=== PATIENT | female | born 1970 | race Caucasian/White ===

== ENCOUNTER → 2017-02-03 | Outpatient (CLI) | payer BC, OTHER ==
[~2017-02-03] MED LIST: ACHD5005 PO; ADDERAL; ADDERALL PO; ADDR10T PO; AMPH12.5 PO; CLON1TAB3 PO; CLON1TAB36; CYCL10TA9 PO; CYMBALTA PO; DEPO-ESTRADIOL; ESTR1TAB24 PO; LEVO125T66 PO; LUNESTA; PROP65CA PO; TOPI100T2 PO; TOPI50TA20; TOPI50TA20 PO; TRZ50T PO; VENL150T4 PO; VNL37.5T PO
--- NOTE | 2017-02-04 13:31 | Diagnostic Imaging Report ---
Bilateral screening mammogram 2D views with tomosynthesis The current study was also evaluated with a Computer Aided Detection (CAD) system. Indication: Screening. No current complaints stated on the questionnaire. COMPARISON: 09/18/11. FINDINGS: The breasts are composed of scattered fibroglandular densities. There is a 7 mm asymmetry along the inferior aspect of the left MLO view seen. With tomographic evaluation this is favored to be related to summation artifact of parenchyma. The right breast demonstrate no definite change. IMPRESSION: Focal compression views and ultrasound evaluation for inferior left breast asymmetry is recommended. BI-RADS 0. ACR BI-RADS Category 0: Incomplete. (Needs additional imaging evaluation). Result letter will be mailed to the patient. Note: At least 10% of breast cancer is not imaged by mammography. Dictated by: Dictated on workstation # [id number]
== END ==
LOC: RAD 07:17
PROVIDERS: ATTEND Family Medicine
DX: Z12.31 Encounter for screening mammogram for malignant neoplasm of breast (principal)
CPT/HCPCS: 77067

== ENCOUNTER → 2017-02-15 | Outpatient (CLI) | payer OTHER ==
--- NOTE | 2017-02-15 09:14 | Diagnostic Imaging Report ---
EXAMINATION: Left breast diagnostic mammogram with tomography. The current study was also evaluated with a Computer Aided Detection (CAD) system. INDICATION: Asymmetry along the inferior aspect of the left breast. FINDINGS: A focal compression view demonstrates persistence of the asymmetry with an equivocal appearance on the tomography view. IMPRESSION: Persistent asymmetry along the inferior aspect of the left breast. An ultrasound evaluation is pending. ACR BI-RADS Category 0: Incomplete. (Needs additional imaging evaluation). Result letter will be mailed to the patient. Note: At least 10% of breast cancer is not imaged by mammography. Dictated by: Dictated on workstation # [id number]
--- NOTE | 2017-02-15 13:21 | Diagnostic Imaging Report ---
EXAMINATION: Left breast ultrasound. INDICATION: Inferior left breast asymmetry. FINDINGS: The inferior aspect of the left breast was scanned with no underlying abnormality. IMPRESSION: Negative study. The asymmetry seen on mammography may relate to summation artifact of parenchyma. The patient mentioned skin dimpling in the lower aspect of the left breast. Correlate clinically and consider evaluation with a breast MRI. If not done, then re-evaluation with left breast mammogram followup in 6 months is recommended. ACR BI-RADS Category 0: Incomplete. (Needs additional imaging evaluation). Result letter will be mailed to the patient. Note: At least 10% of breast cancer is not imaged by mammography. Dictated by: Dictated on workstation # [id number]
== END ==
LOC: RAD 08:41
PROVIDERS: ATTEND Family Medicine
DX: N64.89 Other specified disorders of breast (principal)
CPT/HCPCS: 76642

== ENCOUNTER → 2017-02-18 | Outpatient (CLI) | payer OTHER ==
[~2017-02-18] MED LIST changes: +GADOBUTROL 10 MMOL/10 ML (GADAVIST) VIAL IV ONE
== END ==
LOC: RAD 08:29
PROVIDERS: ATTEND Family Medicine
DX: N64.89 Other specified disorders of breast (principal)
CPT/HCPCS: 77059

== ENCOUNTER → 2018-01-28 | Outpatient (CLI) | payer OTHER ==
[~2018-01-28] MED LIST changes: -GADOBUTROL 10 MMOL/10 ML (GADAVIST) VIAL IV ONE
--- NOTE | 2018-01-28 12:13 | Diagnostic Imaging Report ---
PROCEDURE: CT urinary tract, rule out kidney stone. TECHNIQUE: Multiple contiguous axial images were obtained through the abdomen and pelvis without the use of intravenous contrast. INDICATION: Increasing left flank pain. COMPARISON: Comparison is made with prior CT from 04/26/2009. FINDINGS: The lung bases are clear. No discrete liver mass is identified. The gallbladder is surgically absent. The pancreas and spleen are unremarkable. No adrenal mass is identified. There is a nonobstructive calculus in the upper pole of the right kidney, approximately 3 mm in size. No other renal calculi are detected. There is no hydronephrosis. No definite ureteral calculi or bladder calculi are identified. The aorta is nonaneurysmal. The bowel loops are normal in caliber. No obstruction is seen. There is no ascites. No definite inflammatory process is identified. Uterus appears to be surgically absent. IMPRESSION: 3 mm nonobstructing right renal calculus. The study is otherwise unremarkable. No acute feature is detected. Dictated by: Dictated on workstation # [id number]
== END ==
LOC: RAD 11:46
PROVIDERS: ATTEND Family Medicine
DX: N20.0 Calculus of kidney (principal)
CPT/HCPCS: 74176

== ENCOUNTER → 2018-04-20 | Outpatient (CLI) | payer OTHER ==
[~2018-04-20] MED LIST changes: +LIDOCAINE 1% INJ 20 ML 20 ML VIAL INJ ONE; +LIDOCAINE 1% INJ 20 ML 20 ML VIAL ONE
--- NOTE | 2018-04-20 09:49 | Diagnostic Imaging Report ---
Indication: Right breast nodule. Patient presents for ultrasound-guided biopsy. Correlation is made with outside ultrasound from 04/15/2018 and outside mammogram from 04/15/2018. Sonographic interrogation of the right breast at the 11 o'clock location was performed. The previously noted area of mixed echogenicity at the 11 o'clock location of the right breast appears significantly improved. There are some areas of hyperechogenicity. The cystic or central hypo-echoic regions are much smaller and barely visible on today's exam. No internal vascularity is present. No posterior acoustic shadowing is seen. No new abnormality is identified. Impression: BI-RADS 3 1. The previously noted suspicious mixed echogenicity mass at the 11 o'clock location on the right breast on outside study appears much different on today's study and improved. Features are no longer typical for a breast carcinoma. With that being said, short interval sonographic followup is recommended in approximately 2-4 weeks to confirm stability/resolution. Decision at that time based on appearance will be made on management. Dictated by: Dictated on workstation # [id number]
== END ==
LOC: RAD 07:28
PROVIDERS: ATTEND Nurse Practitioner Family
DX: N63.11 Unspecified lump in the right breast, upper outer quadrant (principal)

== ENCOUNTER → 2018-05-11 | Outpatient (CLI) | payer OTHER ==
[~2018-05-11] MED LIST changes: -LIDOCAINE 1% INJ 20 ML 20 ML VIAL INJ ONE; -LIDOCAINE 1% INJ 20 ML 20 ML VIAL ONE
--- NOTE | 2018-05-11 19:59 | Diagnostic Imaging Report ---
INDICATION: Right breast lesion. Patient presents for followup. COMPARISON: Correlation is made with a right breast ultrasound from 04/20/2018. EXAMINATION: Sonographic interrogation of the 11 o'clock location of the right breast was performed, 5 cm from the nipple. FINDINGS: Previously noted mixed echogenicity lesion at this location again shows continued significant improvement. This is much smaller on today's study, now measuring approximately 7 mm x 4 mm x 4 mm compared with 14 mm x 8 mm x 8 mm on prior. Tiny regions of central hyperechogenicity are again noted. No posterior acoustic shadowing or internal vascularity is seen. IMPRESSION: Continued improved appearance to the mixed echogenicity lesion at the 11 o'clock location of the right breast, 5 cm from the nipple. Findings remain reassuring for benign etiology. Continued short interval sonographic followup of this area is recommended with repeat study in approximately one month. ACR BI-RADS Category 3: Probably benign findings. Result letter will be mailed to the patient. Note: At least 10% of breast cancer is not imaged by mammography. Dictated by: Dictated on workstation # [id number]
== END ==
LOC: RAD 07:34
PROVIDERS: ATTEND Family Medicine
DX: N64.89 Other specified disorders of breast (principal); N63.10 Unspecified lump in the right breast, unspecified quadrant

== ENCOUNTER → 2019-04-17 | Outpatient (CLI) | payer OTHER ==
--- NOTE | 2019-04-17 11:05 | Diagnostic Imaging Report ---
PATIENT HISTORY: WRIST PAIN. Dog bite. TECHNIQUE: Three views of the left wrist. COMPARISON: None. FINDINGS: No acute fracture or dislocation is seen in the left wrist. Alignment appears normal. Joint spaces are preserved. No radiopaque foreign body is seen. IMPRESSION: No acute osseous abnormality or radiopaque foreign body is seen about the left wrist. Dictated by: Dictated on workstation # [id number]
--- NOTE | 2019-04-17 11:06 | Diagnostic Imaging Report ---
PATIENT HISTORY: WRIST PAIN. Dogbite. TECHNIQUE: Two views of the left forearm. COMPARISON: None. FINDINGS: No acute fracture or dislocation is seen in the left forearm. Alignment appears normal. Joint spaces are preserved. There is mild soft tissue swelling at the radial aspect of the distal left forearm. No radiopaque foreign body is seen. IMPRESSION: Soft tissue swelling at the distal left forearm, with no acute osseous abnormality or radiopaque foreign body seen. Dictated by: Dictated on workstation # [id number]
== END ==
LOC: RAD 10:28
PROVIDERS: ATTEND Nurse Practitioner Family
DX: S51.852A Open bite of left forearm, initial encounter (principal); W54.0XXA Bitten by dog, initial encounter
CPT/HCPCS: 73090; 73110

== ENCOUNTER → 2019-05-22 | Outpatient (CLI) | payer OTHER ==
--- NOTE | 2019-05-22 13:49 | Diagnostic Imaging Report ---
Patient History: CHEST TIGHTNESS. Technique: Two views of the chest Comparison: None FINDINGS: The lung volumes are normal. No focal consolidation is seen. No large pleural effusion or pneumothorax is seen. The cardiomediastinal silhouette is normal in size and contour. No acute osseous abnormality is seen. IMPRESSION: 1. No acute pleuroparenchymal process. Dictated by: Dictated on workstation # [id number]
== END ==
LOC: RAD 13:24
PROVIDERS: ATTEND Family Medicine
DX: R07.89 Other chest pain (principal)
CPT/HCPCS: 71046

== ENCOUNTER 2019-05-23 12:22 | Emergency (ER) | payer OTHER ==
[~2019-05-23] VITALS: Ht 152 cm; Wt 86.0 kg
[~2019-05-23 12:22] MED LIST changes: -CATHETER FLUSH 10 ML SYR IV PRN; -HOLD METFORMIN - RECEIVED CONTRAST 20 ML VIAL IV SCH; -IOHEXOL 350 MG/ML 100 ML (OMNIPAQUE 350) VIAL IV ONE; -NS 100 ML (IVPB) BAG IV ONE
[2019-05-23] MEDS ORDERED: ASPIRIN 81 MG CHEW (CHILDREN'S ASA) ONE (12:26)
[2019-05-23] MEDS ORDERED: ASPIRIN 81 MG CHEW (CHILDREN'S ASA) PO ONE (12:45)
[2019-05-23 12:47] LABS: BASOPHILS % (AUTO) 0 % (0-10); EOSINOPHILS % (AUTO) 0 % (0-10); HEMATOCRIT 41 % (35-52); HEMOGLOBIN 14.1 G/DL (11.5-16.0); LYMPHOCYTES # (AUTO) 1.8 X 10^3 (1.0-4.0); LYMPHOCYTES % (AUTO) 12 % (12-44); MEAN CORPUSCULAR HEMOGLOBIN 30 PG (25-34); MEAN CORPUSCULAR HGB CONC 34 G/DL (32-36); MEAN CORPUSCULAR VOLUME 87 FL (80-99); MEAN PLATELET VOLUME 9.3 FL (7.4-10.4); MONOCYTES # (AUTO) 1.6 X 10^3 (0.0-1.0); MONOCYTES % (AUTO) 10 % (0-12); NEUTROPHILS # (AUTO) 12.1 X 10^3 (1.8-7.8); NEUTROPHILS % (AUTO) 78 % (42-75); PLATELET COUNT 348 10^3/uL (130-400); RED CELL DISTRIBUTION WIDTH 12.7 % (10.0-14.5); WHITE BLOOD COUNT 15.5 10^3/uL (4.3-11.0)
[2019-05-23] MEDS ORDERED: NS IV 1000 ML 1,000 ML IV ONE (13:02)
[2019-05-23 13:04] LABS: FIBRIN DEGRADATION PRODUCTS 0.3 UG/ML (0.00-0.49); INR 0.9 (0.8-1.4); PROTHROMBIN TIME PATIENT 12.2 SEC (12.2-14.7)
[2019-05-23 13:05] LABS: ALANINE AMINOTRANSFERASE 22 U/L (0-55); ALBUMIN 4.2 GM/DL (3.2-4.5); ALKALINE PHOSPHATASE 81 U/L (40-136); BILIRUBIN,TOTAL 0.3 MG/DL (0.1-1.0); BUN/CREATININE RATIO 17; CALCIUM 9.7 MG/DL (8.5-10.1); CARBON DIOXIDE 24 MMOL/L (21-32); CHLORIDE 105 MMOL/L (98-107); CREATININE SERUM 0.77 MG/DL (0.60-1.30); GFR ESTIMATED > 60; GLUCOSE 105 MG/DL (70-105); MAGNESIUM 1.8 MG/DL (1.6-2.4); POTASSIUM 3.6 MMOL/L (3.6-5.0); SODIUM 141 MMOL/L (135-145); TOTAL PROTEIN 7.3 GM/DL (6.4-8.2)
--- NOTE | 2019-05-23 13:05 | Diagnostic Imaging Report ---
INDICATION: Syncope and chest pain. Comparison is made with prior examination of 05/22/2019. FINDINGS: The heart size, mediastinal configuration, and pulmonary vascularity are within normal limits. There is no pleural effusion, pneumothorax, or pneumonia. The osseous structures are unremarkable. IMPRESSION: No acute cardiopulmonary abnormality. Dictated by: Dictated on workstation # [id number]
--- NOTE | 2019-05-23 13:17 | ED Chest Pain ---
General Chief Complaint: Chest Pain Stated Complaint: Chest pain Source: patient Exam Limitations: no limitations (AMINA RUIZ) History of Present Illness Date Seen by Provider: May 23, 2019 Time Seen by Provider: 12:35 Initial Comments Pt is a 49 y/o female w/ past medical hx of depression and anxiety who presents to the ED, wheeled in from CT room, with R-sided CP ("pressure") and brief episode of syncope. CP is associated with SOB. Pt notes her CP started last (05/18/2019); assuming the CP was 2/2 indigestion, pt took "Tums" but had not relief. The next day she had another episode of CP for which she took and ASA and fell asleep. Her sx continued so she went to her PCP (Dr. Schwarz) office yesterday. She had nl blood work and CXR at the office and received a Steroid inj. Pt had continued SOB and CP so she was sent here to get a CT and EKG done during which she had her current episode of CP and syncope. Denies hx of CP or syncope previously. Denies any N/V/F or chills, abd pain, palpitation, radiation of her pain, cough, acid reflux, dysuria, or any recent hx of trauma. Pt additionally notes she has been having "explosive diarrhea" since last night; denies any blood in stool, steatorrhea, sick contacts, eating any suspicious food, or anyone else in her family with similar sx. Pt has hx of HTN in the past and was Spironolactone previously but her HTN has since resolved. Pt has hx of SI and suicide attempt (Tylenol overdose) years ago but currently denies any SI, HI, or plan for suicide. Timing/Duration: 5-6 days Severity/Quality: pressure Location: substernal (R sided) Radiation: no radiation Activities at Onset: none Prior CP/Workup: no prior chest pain Modifying Factors: worse with antacids, worse with breathing, worse with coughing Associated Symptoms: No abdominal pain, No diaphoresis, No dizziness; headache; No heartburn, No nausea/vomiting; shortness of breath (AMINA RUIZ) Initial Comments Here from CT outpatient area or if she was found to be leaning against a wall and almost passing out. The tech was able to assist her to the ground when she became quite weak. Ultimately put her in a wheelchair and brought her here were she was nearly unresponsive but responding. Complaining of significant chest pain as above. Timing/Duration: intermittent, 5-6 days Severity/Quality: pressure Location: substernal (R sided), central Radiation: no radiation Activities at Onset: none Prior CP/Workup: no prior chest pain ASA po SENIOR CLINICAL PROJECT MANAGER: No NTG SL SENIOR CLINICAL PROJECT MANAGER: No Associated Symptoms: No nausea/vomiting; shortness of breath, syncope, weakness (VIC FOUNTAIN MD) Allergies and Home Medications Allergies Coded Allergies: codeine (Unverified Allergy, Mild, 04/12/09) morphine (Verified Adverse Reaction, Unknown, VOMITING, 04/12/09) Home Medications Clonazepam 1 Mg Tablet, 1 MG PO DAILY, (Reported) Topiramate 50 Mg Tablet, 100 MG PO DAILY, (Reported) Topiramate 100 Mg Tablet, 100 MG PO DAILY, (Reported) Trazodone Hcl 50 Mg Tab, 50 MG PO HS, (Reported) [Adderall] , 20 MG PO BID, (Reported) Patient Home Medication List Home Medication List Reviewed: Yes (VIC FOUNTAIN MD) Review of Systems Review of Systems Constitutional: No chills, No diaphoresis, No dizziness, No fever, No weakness EENTM: No Blurred Vision, No Double Vision Respiratory: Denies Cough, Denies Orthopnea; Shortness of Air; Denies Wheezing Cardiovascular: Chest Pain; Denies Edema, Denies Irregular Heart Rate, Denies Palpitations; Syncope Gastrointestinal: Denies Abdominal Pain; Diarrhea; Denies Difficulty Swallowing, Denies Nausea, Denies Vomiting Genitourinary: Denies Discharge, Denies Drainage, Denies Frequency, Denies Hematuria Musculoskeletal: No back pain, No muscle pain Skin: No change in color, No change in hair/nails, No dryness, No pruritus, No rash Psychiatric/Neurological: Anxiety (chronic), Depressed (chronic), Headache; Denies Numbness, Denies Paresthesia (AMINA RUIZ) All Other Systems Reviewed Negative Unless Noted: Yes (VIC FOUNTAIN MD) Past Buiiriy-Uczkec-Wgcvom Hx Past Med/Social Hx: Reviewed Nursing Past Med/Soc Hx (VIC FOUNTAIN MD) Patient Social History Alcohol Use: Denies Use Recreational Drug Use: No Smoking Status: Never a Smoker Recent Hopitalizations: No (2002 HYSTERECTOMY, SURGERY ON SHOULDER REPAIR IN 1995, KIDNEY STONES) Physical Abuse: No Sexual Abuse: No (AMINA RUIZ) Past Medical History Surgeries: Yes ( BREAST REDUCTION) Bladder Surgery (States it was for "prolapse, and they found a titaneum screw in my bladder"), Hysterectomy, Oophorectomy Respiratory: No Cardiac: No Hypertension (resolved now) 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 oz. 88.397189qg; BMI Method:Estimated General Appearance: Mild Distress, Obese, Other (Tearful at the time of eval) HEENT: Normal ENT Inspection Neck: Full Range of Motion, Normal Inspection, Non Tender, Supple Respiratory: Chest Non Tender, Lungs Clear, Normal Breath Sounds, No Accessory Muscle Use, No Respiratory Distress Cardiovascular: Regular Rate, Rhythm, No Edema, No Gallop, No JVD, No Murmur, Normal Peripheral Pulses Gastrointestinal: Normal Bowel Sounds, No Organomegaly, No Pulsatile Mass, Non Tender, Soft Extremity: Normal Capillary Refill, Normal Inspection, Normal Range of Motion, Non Tender, No Calf Tenderness, No Pedal Edema Neurologic/Psychiatric: Alert, Oriented x3 Skin: Normal Color, Warm/Dry Lymphatic: No Adenopathy (AMINA RUIZ) General Appearance: Mild Distress, Moderate Distress, Obese HEENT: PERRL/EOMI, Normal ENT Inspection, Pharynx Normal Neck: Non Tender, Supple Respiratory: Lungs Clear, Normal Breath Sounds Cardiovascular: Regular Rate, Rhythm, No Murmur Gastrointestinal: Non Tender, Soft Extremity: Normal Range of Motion, Non Tender Neurologic/Psychiatric: Alert, Other (anxious and tearful) Skin: Normal Color, Warm/Dry (VIC FOUNTAIN MD) Progress/Results/Core Measures Results/Orders Lab Results Laboratory Tests Test 05/23/19 12:30 05/23/19 17:30 Range/Units White Blood Count 15.5 H 4.3-11.0 10^3/uL Red Blood Count 4.73 4.35-5.85 10^6/uL Hemoglobin 14.1 11.5-16.0 G/DL Hematocrit 41 35-52 % Mean Corpuscular Volume 87 80-99 FL Mean Corpuscular Hemoglobin 30 25-34 PG Mean Corpuscular Hemoglobin Concent 34 32-36 G/DL Red Cell Distribution Width 12.7 10.0-14.5 % Platelet Count 348 130-400 10^3/uL Mean Platelet Volume 9.3 7.4-10.4 FL Neutrophils (%) (Auto) 78 H 42-75 % Lymphocytes (%) (Auto) 12 12-44 % Monocytes (%) (Auto) 10 0-12 % Eosinophils (%) (Auto) 0 0-10 % Basophils (%) (Auto) 0 0-10 % Neutrophils # (Auto) 12.1 H 1.8-7.8 X 10^3 Lymphocytes # (Auto) 1.8 1.0-4.0 X 10^3 Monocytes # (Auto) 1.6 H 0.0-1.0 X 10^3 Eosinophils # (Auto) 0.0 0.0-0.3 10^3/uL Basophils # (Auto) 0.0 0.0-0.1 10^3/uL Neutrophils % (Manual) 78 % Lymphocytes % (Manual) 16 % Monocytes % (Manual) 5 % Eosinophils % (Manual) 0 % Basophils % (Manual) 0 % Band Neutrophils 1 % Toxic Granulation 1+ Blood Morphology Comment NORMAL Prothrombin Time 12.2 12.2-14.7 SEC INR Comment 0.9 0.8-1.4 Activated Partial Thromboplast Time 24 24-35 SEC D-Dimer 0.30 0.00-0.49 UG/ML Sodium Level 141 135-145 MMOL/L Potassium Level 3.6 3.6-5.0 MMOL/L Chloride Level 105 98-107 MMOL/L Carbon Dioxide Level 24 21-32 MMOL/L Anion Gap 12 5-14 MMOL/L Blood Urea Nitrogen 13 7-18 MG/DL Creatinine 0.77 0.60-1.30 MG/DL Estimat Glomerular Filtration Rate > 60 BUN/Creatinine Ratio 17 Glucose Level 105 70-105 MG/DL Calcium Level 9.7 8.5-10.1 MG/DL Corrected Calcium 9.5 8.5-10.1 MG/DL Magnesium Level 1.8 1.6-2.4 MG/DL Total Bilirubin 0.3 0.1-1.0 MG/DL Aspartate Amino Transf (AST/SGOT) 15 5-34 U/L Alanine Aminotransferase (ALT/SGPT) 22 0-55 U/L Alkaline Phosphatase 81 40-136 U/L Myoglobin 27.0 10.0-92.0 NG/ML Troponin I < 0.028 < 0.028 <0.028 NG/ML Total Protein 7.3 6.4-8.2 GM/DL Albumin 4.2 3.2-4.5 GM/DL TSH [place] Testing 0.83 0.35-4.94 UIU/ML (VIC FOUNTAIN MD) My Orders Orders - VIC FOUNTAIN MD Cbc With Automated Diff (05/23/19 12:34) Magnesium (05/23/19 12:34) Chest 1 View, Ap/Pa Only (05/23/19 12:34) Ekg Tracing (05/23/19 12:34) Cardiac Profile 1 (05/23/19 12:34) Comprehensive Metabolic Panel (05/23/19 12:34) Myoglobin Serum (05/23/19 12:34) Protime With Inr (05/23/19 12:34) Partial Thromboplastin Time (05/23/19 12:34) O2 (05/23/19 12:34) Monitor-Rhythm Ecg Trace Only (05/23/19 12:34) Lipid Panel (05/24/19 06:00) Ed Iv/Invasive Line Start (05/23/19 12:34) Aspirin Chewable Tablet (Baby Aspirin Ch (05/23/19 12:45) Manual Differential (05/23/19 12:30) Fibrin Degradation Products (05/23/19 12:30) Ns Iv 1000 Ml (Sodium Chloride 0.9%) (05/23/19 13:02) Ct Angio Chest W (05/23/19 13:56) Thyroid Analyzer (05/23/19 13:56) Iohexol Injection (Omnipaque 350 Mg/Ml 1 (05/23/19 14:15) Received Contrast (Hold Metformin- Contr (05/23/19 14:15) Sodium Chloride Flush (Catheter Flush Sy (05/23/19 14:15) Ns (Ivpb) (Sodium Chloride 0.9% Ivpb Bag (05/23/19 14:15) Ketorolac Injection (Toradol Injection) (05/23/19 15:43) Troponin I (05/23/19 17:17) Lidocaine 2% Viscous 15 Ml (Xylocaine Vi (05/23/19 17:30) Pantoprazole Injection (Protonix Injecti (05/23/19 17:30) Antacid Suspension (Mylanta Suspension (05/23/19 17:30) (VIC FOUNTAIN MD) Medications Given in ED Current Medications Medications Dose Ordered Sig/Nallely Route Start Time Stop Time Status Last Admin Dose Admin Al Hydrox/Mg Hydrox/Simethicone 30 ml ONCE ONCE PO 05/23/19 17:30 05/23/19 17:31 DC 05/23/19 17:37 30 ML Aspirin 324 mg ONCE ONCE PO 05/23/19 12:45 05/23/19 12:46 DC 05/23/19 12:25 324 MG Iohexol 100 ml ONCE ONCE IV 05/23/19 14:15 05/23/19 14:16 DC 05/23/19 14:22 74 ML Lidocaine HCl 15 ml ONCE ONCE PO 05/23/19 17:30 05/23/19 17:31 DC 05/23/19 17:37 15 ML Pantoprazole 40 mg ONCE ONCE IV 05/23/19 17:30 05/23/19 17:31 DC 05/23/19 17:37 40 MG Sodium Chloride 10 ml NEEDED PRN IV 05/23/19 14:15 05/23/19 14:22 10 ML Sodium Chloride 100 ml ONCE ONCE IV 05/23/19 14:15 11/5/19 14:16 DC 05/23/19 14:22 80 ML Sodium Chloride 1,000 ml @ 0 mls/hr Q0M ONCE IV 05/23/19 13:02 05/23/19 13:03 DC 05/23/19 13:19 1,000 MLS/HR (VIC FOUNTAIN MD) Vital Signs/I&O 05/23/19 12:22 Temp 36.8 Pulse 89 Resp 18 B/P (MAP) 157/106 (123) Pulse Ox 100 (VIC FOUNTAIN MD) Progress Progress Note : Time: 12:35 Progress Note Seen and evaluated. Pt presentation concerning for PE and AK. CBC, coagulation studies w/ D-dimer, CMP w/ Troponin, CXR and EKG was ordered. All were unremarkable and negative for cardiovascular pathology and PE. ASA and NTG was given and IVF started. Awaiting lipid panel results at this time. Will monitor pt. Pt reports at this time that she has hx of hypothyroidism and used to be on levothyroxine, however cannot provide any info on why she is no longer on thyroid mes. Will order Tyroid panel. (AMINA RUIZ) Progress Note : Progress Note I have seen and evaluated the patient and agree with above except as indicated. I have directed the plan of care. IV, labs, EKG and chest x-ray ordered. ASA 324 mg by mouth ordered. Normal saline 1 L bolus. Monitor patient. 1420: We have added thyroid studies as indicated above. Patient will also get CT angiogram of the chest that she was supposed to get as an outpatient to evaluate the lungs better. Monitor patient. 1715: CT angiogram negative. Toradol 30 mg IV given and this has helped. I did discuss the case with Dr. Sweeney and he will see her at appointment. I also discussed the case with Dr. Schwarz, her primary doctor. We will repeat troponin and give GI cocktail as well as Protonix IV and troponin is negative, patient will be discharged home. Dr. Schwarz we will assist with scheduling follow-up for stress test. This was discussed with the patient who agrees. Monitor patient. 1829: Repeat troponin negative. Patient doing better. Discharged home with return precautions. Patient verbalize understanding instructions and agreement with plan. (VIC FOUNTAIN MD) Initial ECG Impression Date: May 23, 2019 Initial ECG Impression Time: 12:25 Initial ECG Rate: 79 Initial ECG Rhythm: Normal Sinus Comment Sinus rhythm with nonspecific T-wave abnormalities. Similar to previous of 05/17/13. No evidence of ST elevation AK. Interpreted by me. Normal axis. (VIC FOUNTAIN MD) Diagnostic Imaging Diagonstic Imaging: Xray Comments NAME: BENTLEY FLORES [facility] REC#: [id number] PT STATUS: REG ER : 1970 PHYSICIAN: VIC FOUNTAIN MD ADMIT DATE: 05/23/19/ER Signed POSDate of Exam: 05/23/19 CHEST 1 VIEW, AP/PA ONLY INDICATION: Syncope and chest pain. Comparison is made with prior examination of 05/22/2019. FINDINGS: The heart size, mediastinal configuration, and pulmonary vascularity are within normal limits. There is no pleural effusion, pneumothorax, or pneumonia. The osseous structures are unremarkable. IMPRESSION: No acute cardiopulmonary abnormality. Dictated by: Dictated on workstation # [id number] Dict: 05/23/19 1303 Trans: 05/23/19 1306 Interpreted by: TRACY ALCANTAR MD Electronically signed by: TRACY ALCANTAR MD 05/23/19 1306 (AMINA RUIZ [facility]) Diagonstic Imaging: CT Plain Films/CT/US/NM/MRI: chest Comments NAME: BENTLEY FLORES [facility] REC#: [id number] PT STATUS: REG ER : 1970 PHYSICIAN: VIC FOUNTAIN MD ADMIT DATE: 05/23/19/ER Signed POSDate of Exam: 05/23/19 CT ANGIO CHEST W PROCEDURE: CT angiography of the chest with contrast. TECHNIQUE: Multiple contiguous axial images were obtained through the chest after uneventful bolus administration of intravenous contrast. 3D reconstructed CTA MIP acquisitions were also performed. Auto Exposure Controls were utilized during the CT exam to meet ALARA standards for radiation dose reduction. DATE: May 23, 2019. COMPARISON: Chest radiograph May 23, 2019. INDICATION: 49-year-old female, chest pain, dizziness, weakness. FINDINGS: There is no identified pulmonary nodule or lung mass. There are mild multifocal predominantly linear opacities, likely relating to atelectasis. There is some motion artifact present. There is no pneumothorax. There is no pleural effusion. The central airways are patent. There is no identified central or segmental pulmonary embolus. There is limited evaluation for subsegmental pulmonary emboli given motion artifact and timing the contrast bolus. There is no gross dilation of the main pulmonary artery. The heart is not enlarged. There is no pericardial effusion. There is no identified abnormally enlarged mediastinal, hilar, or axillary lymph node which meets CT size criteria for adenopathy. The patient is status post cholecystectomy. Additional evaluation of the imaged portions of the upper abdomen is unremarkable. There is no identified acute bony abnormality. IMPRESSION: CT CHEST. 1. No identified central or segmental pulmonary embolus. 2. No otherwise identified acute cardiopulmonary abnormality. Dictated by: Dictated on workstation # [id number] Dict: 05/23/19 1535 Trans: 05/23/19 1659 Interpreted by: DANIEL PATEL MD Electronically signed by: DANIEL PATEL MD 05/23/19 1650 Reviewed: Reviewed by Me (VIC FOUNTAIN MD) Departure Impression Primary Impression: Chest pain Qualified Codes: R07.9 - Chest pain, unspecified Disposition: 01 HOME, SELF-CARE Condition: Improved Departure-Patient Inst. Decision time for Depature: 18:29 (VIC FOUNTAIN MD) Referrals: ENID SCHWARZ DO (PCP/Family) Primary Care Physician Patient Instructions: Chest Pain (DC) Add. Discharge Instructions: All discharge instructions reviewed with patient and/or family. Voiced understanding. Follow-up with Dr. Schwarz tomorrow for recheck and further evaluation and referral to cardiology. You may take [id number] omeprazole 20 mg daily for the next 2-4 weeks. If you're still having some discomfort, he may take [id number] famotidine (Pepcid) 20 mg once or twice daily. Return for worse pain, fever, vomiting, weakness, breathing problems or other concerns as needed. Keep appointment with Dr. Sweeney for follow-up as well. Copy Copies To 1: ENID SCHWARZ DO Copies To 2: MARY SWEENEY SHAGHAYEGH [facility] May 23, 2019 13:17 VIC MILLER MD May 23, 2019 14:30 POS
[2019-05-23 13:45] LABS: BAND NEUTROPHILS 1 %; BASOPHILS % (MANUAL) 0 %; EOSINOPHILS % (MANUAL) 0 %; LYMPHOCYTES % (MANUAL) 16 %; MONOCYTES % (MANUAL) 5 %; NEUTROPHILS % (MANUAL) 78 %; RBC MORPH NORMAL; TOXIC GRANULATION/VACUOLAZATIO 1+
[2019-05-23] MEDS ORDERED: NS 100 ML (IVPB) BAG IV ONE (14:15)
[2019-05-23] MEDS ORDERED: HOLD METFORMIN - RECEIVED CONTRAST 20 ML VIAL IV SCH (14:15)
[2019-05-23] MEDS ORDERED: CATHETER FLUSH 10 ML SYR IV PRN (14:15)
[2019-05-23] MEDS ORDERED: IOHEXOL 350 MG/ML 100 ML (OMNIPAQUE 350) VIAL IV ONE (14:15)
[2019-05-23] MEDS ORDERED: KETOROLAC 30 MG/ML VIAL IVP STA (15:43)
--- NOTE | 2019-05-23 15:51 | Diagnostic Imaging Report ---
PROCEDURE: CT angiography of the chest with contrast. TECHNIQUE: Multiple contiguous axial images were obtained through the chest after uneventful bolus administration of intravenous contrast. 3D reconstructed CTA MIP acquisitions were also performed. Auto Exposure Controls were utilized during the CT exam to meet ALARA standards for radiation dose reduction. DATE: May 23, 2019. COMPARISON: Chest radiograph May 23, 2019. INDICATION: 49-year-old female, chest pain, dizziness, weakness. FINDINGS: There is no identified pulmonary nodule or lung mass. There are mild multifocal predominantly linear opacities, likely relating to atelectasis. There is some motion artifact present. There is no pneumothorax. There is no pleural effusion. The central airways are patent. There is no identified central or segmental pulmonary embolus. There is limited evaluation for subsegmental pulmonary emboli given motion artifact and timing the contrast bolus. There is no gross dilation of the main pulmonary artery. The heart is not enlarged. There is no pericardial effusion. There is no identified abnormally enlarged mediastinal, hilar, or axillary lymph node which meets CT size criteria for adenopathy. The patient is status post cholecystectomy. Additional evaluation of the imaged portions of the upper abdomen is unremarkable. There is no identified acute bony abnormality. IMPRESSION: CT CHEST. 1. No identified central or segmental pulmonary embolus. 2. No otherwise identified acute cardiopulmonary abnormality. Dictated by: Dictated on workstation # [id number]
[2019-05-23] MEDS ORDERED: LIDOCAINE 2% VISCOUS 15 ML UDC PO ONE (17:30)
[2019-05-23] MEDS ORDERED: PANTOPRAZOLE 40 MG (PROTONIX) VIAL IV ONE (17:30)
[2019-05-23] MEDS ORDERED: ANTACID SUSP 30 ML UDC (MYLANTA) PO ONE (17:30)
[2019-05-23 18:53] VITALS: BP 140/86
== END 2019-05-23 18:50 | disposition home or self-care (01) ==
LOC: EDUNIT# 12:22 → ER 12:33
DX: R07.9 Chest pain, unspecified (principal); F41.9 Anxiety disorder, unspecified; F32.9 Major depressive disorder, single episode, unspecified; I10 Essential (primary) hypertension; E03.9 Hypothyroidism, unspecified; F90.9 Attention-deficit hyperactivity disorder, unspecified type; Z91.5 Personal history of self-harm; Z88.5 Allergy status to narcotic agent; Z87.442 Personal history of urinary calculi; Z90.710 Acquired absence of both cervix and uterus
CPT/HCPCS: 36415; 71045; 71275; 80053; 83735; 83874; 84443; 84484; 85007; 85027; 85379; 85610; 85730; 93005; 93041

== ENCOUNTER → 2019-05-23 | Outpatient (CLI) | payer OTHER ==
[~2019-05-23] MED LIST changes: +CATHETER FLUSH 10 ML SYR IV PRN; +HOLD METFORMIN - RECEIVED CONTRAST 20 ML VIAL IV SCH; +IOHEXOL 350 MG/ML 100 ML (OMNIPAQUE 350) VIAL IV ONE; +NS 100 ML (IVPB) BAG IV ONE
== END ==
LOC: CARD 10:53
PROVIDERS: ATTEND Nurse Practitioner Family
DX: R07.9 Chest pain, unspecified (principal); R06.00 Dyspnea, unspecified
CPT/HCPCS: 93005

== ENCOUNTER → 2019-05-30 | Outpatient (CLI) | payer OTHER | LOC: CARD 15:23 | PROVIDERS: ATTEND Nurse Practitioner Family | DX: I51.7 Cardiomegaly (principal) | CPT/HCPCS: 93306 ==

== ENCOUNTER → 2019-05-30 | Outpatient (CLI) | payer OTHER ==
[~2019-05-30] VITALS: Ht 154 cm; Wt 86.0 kg
[~2019-05-30] MED LIST changes: +CATHETER FLUSH 10 ML SYR IV PRN; +REGADENOSON 0.4 MG/5 ML SYR (LEXISCAN) IV ONE
[2019-05-30 09:29] VITALS: BP 92/67
[2019-05-30 09:33] VITALS: BP 85/67
--- NOTE | 2019-05-30 14:22 | STRESS TEST ---
DATE OF SERVICE: 05/30/2019 RESTING AND POST REGADENOSON TECHNETIUM-99M TETROFOSMIN SPECT CT IMAGING ORDERING PHYSICIAN: Daria Crisostomo APRN PRIMARY PHYSICIAN: Dr. Schwarz. CLINICAL DIAGNOSIS: Chest pain. Baseline images were carried out after injection of 10.17 mCi of technetium-99m Tetrofosmin. This was followed by 0.4 mg regadenoson and 30.9 mCi of technetium-99m Tetrofosmin for stress imaging. The electrocardiogram showed sinus rhythm at baseline. It did not change significantly with regadenoson infusion. The patient noted some shortness of breath and heaviness in the chest following regadenoson infusion, which resolved in a few minutes. Review of images at rest and following stress does not indicate any significant perfusion defects consistent with myocardial ischemia or infarction. Gated images show normal global left ventricular systolic function with normal regional wall motion. Left ventricular ejection fraction is calculated to be 83%. Left ventricular end diastolic volume is 33 mL. TID is absent (1.18). CONCLUSIONS: 1. No evidence of any significant myocardial ischemia or infarction on this study. 2. Normal regional wall motion. 3. Normal to hyperdynamic left ventricular systolic function with a calculated ejection fraction of 83%. Job ID: [id number] DocumentID: [id number] Dictated Date: 05/30/2019 14:16:00 Networking Specialist Date: 05/30/2019 14:21:25 Dictated By: MARIA D EATON MD, MA, FACP, FACC,
== END ==
LOC: CARD 07:25
PROVIDERS: ATTEND Nurse Practitioner Family
DX: R07.9 Chest pain, unspecified (principal); R06.02 Shortness of breath
CPT/HCPCS: 78452; 93017

== ENCOUNTER 2019-06-13 11:08 | Day surgery (SDC) | payer OTHER ==
[2019-06-13] VITALS (11 sets, daily range): BP systolic 117–147; BP diastolic 75–95
[~2019-06-13] VITALS: Ht 155 cm; Wt 89.0 kg
[~2019-06-13 11:08] MED LIST changes: -CATHETER FLUSH 10 ML SYR IV PRN; -REGADENOSON 0.4 MG/5 ML SYR (LEXISCAN) IV ONE
[2019-06-13] MEDS ORDERED: HEParin (CATH LAB) 2,000 ML IV ONE (11:23)
[2019-06-13] MEDS ORDERED: LIDOCAINE 1% INJ 20 ML 20 ML VIAL ONE ×2 (11:23→14:48)
[2019-06-13] MEDS ORDERED: NS IV 1000 ML 1,000 ML ONE (11:23)
[2019-06-13] MEDS ORDERED: NS IV 1000 ML 1,000 ML IV SCH ×2 (11:30→15:47)
[2019-06-13 11:47] LABS: HEMOGLOBIN 14.1 G/DL (11.5-16.0); MEAN PLATELET VOLUME 8.8 FL (7.4-10.4); RED CELL DISTRIBUTION WIDTH 12.3 % (10.0-14.5); WHITE BLOOD COUNT 5.9 10^3/uL (4.3-11.0)
[2019-06-13 12:06] LABS: INR 0.9 (0.8-1.4); PROTHROMBIN TIME PATIENT 12.9 SEC (12.2-14.7)
[2019-06-13 12:10] LABS: ALANINE AMINOTRANSFERASE 17 U/L (0-55); ALBUMIN 4.2 GM/DL (3.2-4.5); ALKALINE PHOSPHATASE 69 U/L (40-136); BILIRUBIN,TOTAL 0.6 MG/DL (0.1-1.0); BUN/CREATININE RATIO 14; CALCIUM 9.4 MG/DL (8.5-10.1); CARBON DIOXIDE 26 MMOL/L (21-32); CHLORIDE 104 MMOL/L (98-107); CHOLESTEROL 203 MG/DL (< 200); CREATININE SERUM 0.81 MG/DL (0.60-1.30); GFR ESTIMATED > 60; GLUCOSE 91 MG/DL (70-105); HDL CHOLESTEROL 59 MG/DL (40-60); POTASSIUM 3.7 MMOL/L (3.6-5.0); SODIUM 139 MMOL/L (135-145); TRIGLYCERIDES 71 MG/DL (<150); VLDL CHOLESTEROL 14 MG/DL (5-40)
[2019-06-13] MEDS ORDERED: CLON0.5T13 PO (12:22)
[2019-06-13] MEDS ORDERED: PANT40TA2 PO (12:28)
[2019-06-13] MEDS ORDERED: ASPI-983 PO (12:28)
[2019-06-13] MEDS ORDERED: DULO60CA6 PO (12:28)
[2019-06-13] MEDS ORDERED: TRAZ-190 PO (12:28)
[2019-06-13] MEDS ORDERED: ESTR2TAB4 PO (12:28)
[2019-06-13] MEDS ORDERED: DULO30CA3 PO (12:28)
[2019-06-13] MEDS ORDERED: IBUP-2055 PO (12:29)
--- NOTE | 2019-06-13 12:38 | NUR ---
SPOKE WITH THE PT WELL CALLING [facility] AND DILLIONS TO COMPLETE THE MED REC. PT DID NOT BRING A LIST OR HER HOME MEDS BUT SHE WAS ABLE TO TELL ME WHAT SHE TOOK INCLUDING WHEN/HOW. DULOXETINE: PT TAKES 1 CAP OF THE 30MG AND 1 CAP OF THE 60MG TO EQUAL 90MG HS THE FOLLOWING ARE FILL DATES: 05-03-2019 TRAZODONE #180/90DS 05-24-2019 PANTOPRAZOLE #30/90DS 05-24-2019 DULOXETINE 30MG #30/30DS 05-24-2019 CLONAZEPAM #30 06-04-2019 ESTRACE #90/90DS 06-04-2019 DULOXETINE 60MG #90/90DS OTC MEDS: IBUPROFEN ASPIRIN 81
[2019-06-13] MEDS ORDERED: MIDAZOLAM 5 MG/5 ML (VERSED) VIAL ONE (13:52)
[2019-06-13] MEDS ORDERED: fentaNYL INJECTION 100 MCG/2 ML AMP ONE (13:53)
[2019-06-13] MEDS ORDERED: diphenhydrAMINE 50 MG/ML INJ (BENADRYL) ONE (14:48)
--- NOTE | 2019-06-13 15:47 | Cardiac Procedure Note-CS/ASA ---
Pre-Procedure Note Pre-Op Procedure Note H&P Reviewed The H&P was reviewed, patient examined and no changes noted. Date H&P Reviewed: Jun 13, 2019 Time H&P Reviewed: 15:00 Conscious Sedation Pre-Proced Time 15:00 ASA Score 3 For ASA 3 and 4: Consider anesthesia and medical clearance. Also, for patients with a history of failed moderate sedation consider anesthesia. Airway Lungs Heart ASA score ASA 1: a normal healthy patient ASA 2: a patient with a mild systemic disease (mid diabetes, controlled hypertension, obesity ASA 3: a patient with a severe systemic disease that limits activity (angina, COPD, prior Myocardial infarction) ASA 4: a patient with an incapacitating disease that is a constant threat to life (CHF, renal failure) ASA 5: a moribund patient not expected to survive 24 hrs. (ruptured aneurysm) ASA 6: a declared brain- patient whose organs are being harvested. For emergent operations, add the letter E after the classification Mallampati Classification Grade 2 Sedation Plan Analgesia, Amnesia, Plan communicated to team members, Discussed options with patient/fam, Discussed risks with patient/fam The patient is an appropriate candidate to undergo the planned procedure, sedation, and anesthesia. The patient immediately re-assessed prior to indication. MARIA D EATON MD FACP FAC CCDS Jun 13, 2019 15:47 POS
--- NOTE | 2019-06-13 15:50 | NUR ---
TO AMB SURG FROM WAGON PERSON PER CART. SEE POST CATH ASSESSMENT. DRESSING D/I TO LEFT UPPER CHEST LOOP RECORDER INSERTION SITE. PT DENIES PAIN AT THE SITE, C/O CHRONIC BACK PAIN FROM LYING FLAT, RATES 2 ON NUMERIC SCALE.
--- NOTE | 2019-06-13 15:50 | Discharge Inst-Cardiology ---
Discharge Inst-Cardiac Discharge Medications Continued Medications: Aspirin (Aspirin EC) 81 Mg Tablet.dr 81 MG PO DAILY, TAB Clonazepam (Clonazepam) 0.5 Mg Tablet 0.5 MG PO DAILY PRN for ANXIETY, TAB Duloxetine HCl (Cymbalta) 30 Mg Capsule.dr 30 MG PO HS, CAP TAKES 30MG CAP ALONG WITH A 60MG CAP TO EQUAL 90MG Duloxetine HCl (Cymbalta) 60 Mg Capsule.dr 60 MG PO HS, CAP TAKES 30MG CAP ALONG WITH A 60MG CAP TO EQUAL 90MG Estradiol (Estrace Tablet) 2 Mg Tablet 2 MG PO DAILY, TAB Ibuprofen (Ibuprofen) 200 Mg Tablet 400 MG PO Q8H PRN for PAIN-MILD (1-4), TAB Pantoprazole Sodium (Protonix) 40 Mg Tablet.dr 40 MG PO DAILY, TAB Trazodone HCl (Trazodone HCl) 100 Mg Tablet 200 MG PO HS, TAB TAKES 2 (100MG) TABS TO EQUAL 200MG MARIA D EATON MD FACP FAC CCDS Jun 13, 2019 15:50 POS
--- NOTE | 2019-06-13 15:51 | Discharge Inst-Post CATH ---
Discharge Inst-CATH/EP Post Cardiac Cath/EP D/C Inst Follow Up/Plan F/u with Dr King next week ACTIVITY * Go Home directly and rest. * Limit activity of the leg (or wrist if it was used) for 7 days including aerobics, swimming, jogging, bicycling, etc. * Restrict stair-climbing for 7 days if possible, if not, climb up with your non -cath leg, then bring together on the same step. * Avoid lifting, pushing, pulling or excessive movement of the affected extr emity for 7 days. * Customary sexual activity may be resumed after 2 days-use caution not to use a position that strains or causes pain to the affected extremity. * No driving for 24 hours. * NO SMOKING. * Avoid straining for bowel movements for 7 days. * Gentle walking on level ground is allowed. * Returning to work will depend on the type of procedure and the results. Your doctor will discuss this with you. CALL YOUR DOCTOR FOR ANY OF THE FOLLOWING: *If bleeding from the puncture site occurs- Apply gentle pressure to site with clean cloth and call your doctor or EMS. * If a knot or lump forms under the skin, increases in size, or causes pain. * If bruising appears to be worsening or moving further down your leg instead of disappearing. * Temperature above 101 F. CARE OF YOUR GROIN INCISION; * Bruising or purple discoloration of the skin near the puncture site is common. * You may shower only, no bathtub bathing for 5 days. Be careful to avoid slipping as your leg may feel stiff. * If a closure device was used on your femoral artery, please see the attached guide regarding care of the device and your leg. * Leave dressing on FOR 24 hours. CARE OF YOUR WRIST INCISION; * Bruising or purple discoloration of the skin near the puncture site is common. * You may shower. * DO NOT submerge wrist. * Leave dressing on FOR 24 hours. MARIA D KING MD [facility] Jun 13, 2019 15:51 POS
[2019-06-13] MEDS ORDERED: PATIENT MAY USE OWN MEDS, ALL PO SCH (16:00)
--- NOTE | 2019-06-13 17:50 | CARDIAC CATHETERIZATION ---
DATE OF SERVICE: 06/13/2019 CARDIAC CATHETERIZATION REPORT This is a 49-year-old lady, who has shortness of breath and chest discomfort. These symptoms have been very limiting for her. They have been quite rapid in onset and continues to be progressive. Cardiac catheterization was carried out today after having obtained an informed consent. DESCRIPTION OF PROCEDURE: She was brought to the cardiac catheterization laboratory in a fasting state. Right groin was prepared and draped in the usual sterile fashion. Lidocaine 1% was used for local anesthesia. Modified Seldinger technique was used to advance a sheath into the right femoral artery and a 7-Marshallese sheath into the right femoral vein. A 7-Marshallese White [place]-Devan catheter was used to carry out right heart catheterization. Oxygen saturations were measured in the various right heart chambers and the White [place]-Devan catheter was then removed. We used a 5-Marshallese pigtail catheter to carry out left heart catheterization. Left ventricular angiography was performed. The pigtail was removed. Coronary angiography was then carried out using a 5-Marshallese JL4 catheter for left coronary angiography and 5-Marshallese JR4 catheter for right coronary angiography. The patient tolerated the procedure well. Angiography of the right femoral artery had been carried out through the sheath at the beginning of the procedure. At the end of the procedure, Mynx was used to achieve hemostasis. She tolerated the procedure well. HEMODYNAMICS: Pulmonary artery pressure was 20/8 with a mean of 13 mmHg. Mean pulmonary wedge pressure was 6 mmHg. Right ventricular pressure was 20/10. Mean right atrial pressure was 5. Left ventricular end-diastolic pressure was 16 mmHg. There is no significant pressure gradient on pullback across the aortic valve. Ascending aortic pressure is 138/91 with a mean of 111 mmHg. Cardiac output by thermodilution was 3.5 and thermodilution cardiac index was 1.87. Oxygen saturation was measured in various heart chambers and there is no evidence of intracardiac shunt. Pulmonary vascular resistance was measured at 1.84 Wood units. LEFT VENTRICULAR ANGIOGRAPHY: Left ventricular angiography was carried out in the right anterior oblique projection. Global left ventricular systolic function is normal. No regional wall motion abnormalities are seen. Left ventricular ejection fraction is approximately 50%. Mild catheter-induced mitral regurgitation was seen on a couple of beats, but there does not appear to be any pathologic mitral regurgitation. CORONARY ANGIOGRAPHY: Left main coronary artery is short and quickly bifurcates into the left anterior descending and left circumflex arteries, which do not exhibit significant disease. Right coronary artery is dominant and does not exhibit significant disease. CONCLUSIONS: 1. Angiographically normal coronary arteries. 2. Normal global left ventricular systolic function with ejection fraction of 50%. 3. Mild elevation of left ventricular end-diastolic pressure. 4. Normal right heart pressures, including normal pulmonary wedge pressure. DISCUSSION AND RECOMMENDATION: Based on results of the study, her symptoms of shortness of breath and chest discomfort do not appear to be of cardiac origin. Continuing risk factor modification is advised. Outpatient followup is advised. Job ID: [id number] DocumentID: [id number] Dictated Date: 06/13/2019 15:05:03 Molded Grid And Parts Inspector Date: 06/13/2019 17:50:12 Dictated By: MARIA D EATON MD, MA, FACP, FACC, MTDD
--- NOTE | 2019-06-13 22:34 | OPERATIVE REPORT ---
DATE OF SERVICE: 06/13/2019 PREOPERATIVE DIAGNOSES: Palpitations and near syncope. POSTOPERATIVE DIAGNOSES: Palpitations and near syncope. PROCEDURE: Implantable loop recorder implantation. DESCRIPTION OF PROCEDURE: The patient is a 49-year-old lady, who has been experiencing infrequent palpitations and near syncope. Implantable loop recorder implantation was carried out after having obtained an informed consent. The left prepectoral area was prepared and draped in the usual sterile fashion. Lidocaine 1% was used for local anesthesia. The tools provided with the [employer]ak[employer] Reveal LINQ device were used to make a subcutaneous pocket anterior to the fourth intercostal space on the left side into which the device was placed and the edges of the skin were closed using Dermabond and Steri-Strips. The serial number of the device is [id number]. The patient tolerated the procedure well. Job ID: [id number] DocumentID: [id number] Dictated Date: 06/13/2019 15:22:39 Geoscientist Date: 06/13/2019 22:33:08 Dictated By: MARIA D EATON MD, MA, FACP, FACC,
== END 2019-06-13 19:00 | disposition home or self-care (01) ==
LOC: CATH 11:08
PROVIDERS: ATTEND Internal Medicine Cardiovascular Disease
DX: R07.89 Other chest pain (principal); R06.02 Shortness of breath; M79.89 Other specified soft tissue disorders; F32.9 Major depressive disorder, single episode, unspecified; R00.2 Palpitations; R55 Syncope and collapse; R73.03 Prediabetes; R94.31 Abnormal electrocardiogram [ECG] [EKG]; Z79.82 Long term (current) use of aspirin; Z79.899 Other long term (current) drug therapy
CPT/HCPCS: 33285; 36415; 80053; 80061; 82810; 85027; 85610; 85730; 87081; 93460

== ENCOUNTER → 2020-01-15 | Outpatient (CLI) | payer OTHER ==
[~2020-01-15] MED LIST changes: +ASPI-983 PO; +CLON0.5T4 PO; +DULO30CA3 PO; +DULO60CA6 PO; +ESTR2TAB4 PO; +IBUP-2473 PO; +PANT40TA2 PO; +TRAZ-227 PO
== END ==
LOC: LABNPT 08:25
PROVIDERS: ATTEND Family Medicine
DX: J02.9 Acute pharyngitis, unspecified (principal); R50.9 Fever, unspecified; R53.83 Other fatigue; M79.10 Myalgia, unspecified site
CPT/HCPCS: 87635

== ENCOUNTER → 2020-04-09 | Outpatient (CLI) | payer OTHER ==
[~2020-04-09] MED LIST changes: +ASPI-1238 PO; -ASPI-983 PO
== END ==
LOC: LABNPT 05:58
PROVIDERS: ATTEND Family Medicine
DX: J06.9 Acute upper respiratory infection, unspecified (principal); Z20.828 Contact with and (suspected) exposure to other viral communicable diseases
CPT/HCPCS: 87635

== ENCOUNTER 2020-07-28 03:54 | Emergency (ER) | payer OTHER ==
[~2020-07-28] VITALS: Ht 165 cm; Wt 79.4 kg
[2020-07-28] MEDS ORDERED: RX-HYDROCODONE/APAP 5/325 MG #4 TAB PK PO PRN (06:00)
[2020-07-28] MEDS ORDERED: cefTRIAXone 1,000 MG/2.86 ml vial (IM ONLY) IM ONE (06:00)
[2020-07-28] MEDS ORDERED: LIDOCAINE 1% INJ 20 ML 20 ML VIAL INJ ONE (06:00)
[2020-07-28] MEDS ORDERED: KETOROLAC 60 MG/2 ML VIAL IM ONE (06:00)
--- NOTE | 2020-07-28 06:02 | ED EENT ---
History of Present Illness General Chief Complaint: Facial Problems Stated Complaint: R FACIAL SWELLING/PAIN Source: patient Exam Limitations: no limitations History of Present Illness Date Seen by Provider: Jul 28, 2020 Time Seen by Provider: 05:35 Initial Comments Patient presents ER by private conveyance with chief complaint of right-sided facial swelling starting in the last day. She is had some tooth pain recently. She follows with Dr. TOWNSEND for dental and Dr. Schwarz for medical. She is not on any anti-locations. She has a history of major depression. She took Tylenol and a couple 50 mg tablets of tramadol that did not touch her pain. She rates it as 10 out of 10. She is had no fevers chills nausea vomiting difficulty breathing or swallowing. Allergies and Home Medications Allergies Coded Allergies: codeine (Unverified Allergy, Mild, 04/12/09) morphine (Verified Adverse Reaction, Unknown, VOMITING, 04/12/09) Home Medications Aspirin 81 Mg Tablet.dr, 81 MG PO DAILY, (Reported) Clonazepam 0.5 Mg Tablet, 0.5 MG PO DAILY PRN for ANXIETY, (Reported) Duloxetine HCl 30 Mg Capsule.dr, 30 MG PO HS, (Reported) TAKES 30MG CAP ALONG WITH A 60MG CAP TO EQUAL 90MG Duloxetine HCl 60 Mg Capsule.dr, 60 MG PO HS, (Reported) TAKES 30MG CAP ALONG WITH A 60MG CAP TO EQUAL 90MG Estradiol 2 Mg Tablet, 2 MG PO DAILY, (Reported) Ibuprofen 200 Mg Tablet, 400 MG PO Q8H PRN for PAIN-MILD (1-4), (Reported) Pantoprazole Sodium 40 Mg Tablet.dr, 40 MG PO DAILY, (Reported) Trazodone HCl 100 Mg Tablet, 200 MG PO HS, (Reported) TAKES 2 (100MG) TABS TO EQUAL 200MG Patient Home Medication List Home Medication List Reviewed: Yes Review of Systems Review of Systems Constitutional: No chills, No diaphoresis, No fever, No malaise Eyes: Denies Blindness, Denies Blurred Vision Ears: Denies Dizziness, Denies Pain Nose: denies clots, denies congestion Mouth: denies clots; pain; denies swelling Throat: denies pain, denies swelling Respiratory: No cough, No short of breath All Other Systems Reviewed Negative Unless Noted: Yes Past Qoqbheq-Dlhvey-Ramzns Hx Patient Social History Alcohol Use: Occasionally Uses Alcohol Beverage of Choice: Wine Recreational Drug Use: No Smoking Status: Never a Smoker 2nd Hand Smoke Exposure: No Recent Foreign Travel: No Contact w/Someone Who Travel: No Recent Hopitalizations: No (2002 HYSTERECTOMY, SURGERY ON SHOULDER REPAIR IN 1995, KIDNEY STONES) Past Medical History Surgeries: Yes ( BREAST REDUCTION) Breast, Gallbladder, Hysterectomy Respiratory: Yes Cardiac: Yes Irregular Heartbeat Neurological: No SAMPLE EXAMINER History: Hysterectomy Genitourinary: No Kidney Stones Gastrointestinal: Yes Gastroesophageal Reflux Musculoskeletal: No Endocrine: Yes Hypothyroidsim Cancer: No Psychosocial: Yes ADD/ADHD, Suicide Attempts, Depression Integumentary: No Blood Disorders: No Adverse Reaction/Blood Tranf: No Family Medical History No Pertinent Family Hx Physical Exam Height, Weight, BMI Height: 0'61.00" Weight: 195lbs. oz. 88.412138gc; 37.04 BMI Method:Estimated General Appearance: WD/WN, mild distress Eyes: bilateral eye normal inspection, bilateral eye PERRL, bilateral eye EOMI Ears: bilateral ear auricle normal, bilateral ear canal normal, bilateral ear T M normal Nose: normal inspection; No active bleeding Mouth/Throat: pharynx swelling (Right buccal soft tissue swelling without induration or fluctuance), other (Right facial calor, rubor, tumor: soft without induration or fluctuance) Neck: non-tender, full range of motion, supple, normal inspection Cardiovascular: normal peripheral pulses, regular rate, rhythm Respiratory: no respiratory distress, no accessory muscle use Neurologic/Psychiatric: director radio II-XII nml as tested, no motor/sensory deficits, alert, normal mood/affect, oriented x 3 Skin: warm/dry, other (Erythematous right face) Progress/Results/Core Measures Results/Orders My Orders Orders - ALISHA CHENEY Ketorolac Injection (Toradol Injection) (07/28/20 06:00) Rx-Hydrocodone/Apap 5-325 Mg (Rx-Vicodin (07/28/20 06:00) Ceftriaxone For Im Use (Rocephin For Im (07/28/20 06:00) Lidocaine 1% Inj 20 Ml (Xylocaine 1% Inj (07/28/20 06:00) Progress Progress Note : Time: 06:00 Progress Note Early onset soft tissue cellulitis likely related to dental abscess. Plan to put her on Augmentin. Rocephin and Toradol tonight. We will give her a warm compress for comfort. We will put her out with hydrocodone. Departure Impression Primary Impression: Cellulitis of face Disposition: 01 HOME, SELF-CARE Condition: Stable Departure-Patient Inst. Decision time for Depature: 05:56 Referrals: ENID SCHWARZ DO (PCP/Family) Primary Care Physician Patient Instructions: Cellulitis (Skin Infection), Adult (DC) Add. Discharge Instructions: Expect improvement on the next 2 to 3 days on antibiotics. Follow-up with Dr. Schwarz or your dentist in the next week to 2 weeks. Return to the ER promptly if you are having difficulty breathing, swallowing or significantly increasing swelling and/or intractable pain. Tylenol 650 mg every 8 hours as necessary for pain. Ibuprofen 800 mg every 8 hours as necessary for pain. Hydrocodone 1 tablet every 6 hours as necessary for breakthrough pain. Hydrocodone may cause drowsiness and constipation. Stool softeners are recommended such as Colace. Warm moist compresses applied as often as necessary for pain relief are recommended. All discharge instructions reviewed with patient and/or family. Voiced u nderstanding. Scripts Hydrocodone/Acetaminophen (Hydrocodone-Acetamin 5-325 mg) 1 Each Tablet 1 EACH PO Q6H PRN for PAIN-BREAKTHROUGH, #10 TAB 0 Refills Prov: ALISHA CHENEY 07/28/20 Amoxicillin/Potassium Clav (Augmentin 875-125 Tablet) 1 Each Tablet 1 EACH PO BID for 10 Days, #20 TAB 0 Refills Prov: ALISHA CHENEY 07/28/20 Work/School Note: Work Release Form Date Seen in the Emergency Department: Jul 28, 2020 Return to Work: Jul 31, 2020 Restrictions: No Restrictions ALISHA CHENEY Jul 28, 2020 06:02
[2020-07-28] MEDS ORDERED: ACHD5005 PO (06:05)
[2020-07-28] MEDS ORDERED: AMOX-358 PO (06:05)
[2020-07-28 06:14] VITALS: BP 137/69
== END 2020-07-28 06:14 | disposition home or self-care (01) ==
LOC: EDUNIT# 03:54 → ER 03:56
DX: L03.211 Cellulitis of face (principal); F32.9 Major depressive disorder, single episode, unspecified; K21.9 Gastro-esophageal reflux disease without esophagitis; Z88.5 Allergy status to narcotic agent; Z79.82 Long term (current) use of aspirin
CPT/HCPCS: 99284

== ENCOUNTER 2021-02-10 05:38 | Outpatient (CLI) | payer OTHER ==
[~2021-02-10] VITALS: Ht 154.9 cm; Wt 87.1 kg
[~2021-02-10 05:38] MED LIST changes: +AMOX-358 PO
[2021-02-10] MEDS ORDERED: DEXT25CP PO (16:42)
== END 2021-02-11 15:55 | disposition home or self-care (01) ==
LOC: PREOP 05:38
PROVIDERS: ATTEND Surgery
DX: Z01.818 Encounter for other preprocedural examination (principal)

== ENCOUNTER 2021-02-17 07:26 | Day surgery (SDC) | payer OTHER ==
[~2021-02-17] VITALS: Ht 154.9 cm; Wt 77.3 kg
[~2021-02-17 07:26] MED LIST changes: +DEXT25CP PO
[2021-02-17] MEDS ORDERED: LACTATED RINGERS 1,000 ML IV ONE (07:43)
[2021-02-17 08:00] VITALS: BP 135/91
[2021-02-17] MEDS ORDERED: LACTATED RINGERS 1,000 ML IV STA (08:00)
--- NOTE | 2021-02-17 08:17 | Progress Note-Pre Operative ---
Pre-Operative Progress Note H&P Reviewed The H&P was reviewed, patient examined and no changes noted. Time Seen by Provider: 08:09 Date H&P Reviewed: Feb 17, 2021 Time H&P Reviewed: 08:09 Pre-Operative Diagnosis: Rectal bleed ANTIONETTE LAMBERT DO Feb 17, 2021 08:17
[2021-02-17] MEDS ORDERED: PROPOFOL INJECTION 100 ML IV ONE (08:47)
[2021-02-17] MEDS ORDERED: MIDAZOLAM 2 MG/2 ML (VERSED) VIAL ONE (08:47)
[2021-02-17 09:25] VITALS: BP 121/96
[2021-02-17 09:30] VITALS: BP 121/76
--- NOTE | 2021-02-17 09:38 | Progress Note-Post Operative ---
Post-Operative Progess Note Surgeon (s)/Transit Mechanic (s) Surgeon ANTIONETTE LAMBERT DO Transit Mechanic: Humza Meng, HUBERII Pre-Operative Diagnosis Rectal bleed Post-Operative Diagnosis Polyp diverticula int hemorrhoids ext hem thrombosed Procedure & Operative Findings Date of Procedure 02/17/21 Procedure Performed/Findings Colon with snare polypectomy PROCEDURE NOTE: After informed consent was obtained, the patient was brought to the endoscopy suite, placed in bed in left lateral decubitus position. She was administered IV sedation by the TRACTOR TRAILER TECHNICIAN who then monitored her vitals the entire time, heart rate, blood pressure and pulse ox and the scope was inserted, on the way in noted a very large polyp in the sigmoid; elected to get it on the way out. Pushed all the way to about 150 cm and pushed into the cecum, took a picture of appendiceal orifice and then slowly withdrew the scope insufflating to look circumferentially at the song. Starting in the cecum, up the ascending colon to the hepatic flexure, then down the transverse colon to the splenic flexure, into the descending colon. Saw a small polyp here and did a snare polypectomy then continued down into the sigmoid. Here found the large polyp and some diverticula; able to get a snare around it and remove with cautery. It fell apart into two pieces; had to suction up to the scope and then pull it out. Went back in for the second piece and could see the base; looked like got down almost to the mucosa. Finally pulled into the rectal vault and retroflexed the scope. Took picture of the internal hemorrhoids. Also noted some external hemorrhoids and one small thrombosed external hemorrhoid. The patient tolerated the procedure. She was recovered in endoscopy suite. Anesthesia Type IV sedation by TRACTOR TRAILER TECHNICIAN Estimated Blood Loss Estimated blood loss (mL): scant Specimens/Packing Specimens Removed desc colon polyp sigmoid polyp ANTIONETTE LAMBERT DO Feb 17, 2021 09:38
--- NOTE | 2021-02-17 09:40 | Endoscopy Discharge Instruct ---
Endo Procedure/Findings Findings 1.: Polyp 2.: Diverticulosis 3.: Internal Hemorrhoids 4.: Other Findings (External hemorrhoids) Discharge Instructions - Activity: You might feel a little sleepy until tomorrow. This is due to the medicine you received to relax you. Until tomorrow, you should: NOT drive a car, operate machinery or power tools. NOT drink any alcoholic beverages. NOT make any important decisions or sign importortant papers. Do not return to work until tomorrow, unless otherwise instructed. Resume previous activities tomorrow. Diet: Start by taking liquids. If you tolerate liquids, advance to solid food. 1.: Colonoscopy in 1 year Notify Physician - If you experience excessive bleeding, unusual abdominal pain, fever, or chest pain, contact your doctor immediately. ANTIONETTE LAMBERT DO Feb 17, 2021 09:39
[2021-02-17 09:56] VITALS: BP 114/79
--- NOTE | 2021-02-17 15:09 | Anesthesia-General Post-Op ---
MAC Patient Condition Mental Status/LOC: Same as Preop Cardiovascular: Satisfactory Nausea/Vomiting: Absent Respiratory: Satisfactory Pain: Controlled Complications: Absent Post Op Complications Complications None Follow Up Care/Instructions Patient Instructions None needed. Anesthesiology Discharge Order Discharge Order Patient was seen this morning after the procedure and she was doing well, no complaints, stable vital signs, no apparent adverse anesthesia problems. KHALIF ELIZABETH DO Feb 17, 2021 15:09
== END 2021-02-17 10:00 | disposition home or self-care (01) ==
LOC: ENDO 07:26
PROVIDERS: ATTEND Surgery
DX: K63.5 Polyp of colon (principal); D12.5 Benign neoplasm of sigmoid colon; K62.5 Hemorrhage of anus and rectum; K57.30 Diverticulosis of large intestine without perforation or abscess without bleeding; K64.8 Other hemorrhoids; K64.5 Perianal venous thrombosis; K21.9 Gastro-esophageal reflux disease without esophagitis; F32.9 Major depressive disorder, single episode, unspecified; F90.9 Attention-deficit hyperactivity disorder, unspecified type; Z79.899 Other long term (current) drug therapy; Z79.82 Long term (current) use of aspirin; Z83.3 Family history of diabetes mellitus; Z80.9 Family history of malignant neoplasm, unspecified
CPT/HCPCS: 88305

== ENCOUNTER → 2022-02-26 | Outpatient (CLI) | payer OTHER ==
[~2022-02-26] VITALS: Ht 154.9 cm; Wt 87.1 kg
[~2022-02-26] MED LIST changes: -DULO60CA6 PO; +DULO60CA7 PO
== END | disposition home or self-care (01) ==
LOC: PREOP 05:34
PROVIDERS: ATTEND Surgery
DX: Z01.818 Encounter for other preprocedural examination (principal)

== ENCOUNTER → 2023-03-15 | Outpatient (CLI) | payer OTHER ==
[~2023-03-15] MED LIST changes: +MELA1TAB72 PO
--- NOTE | 2023-03-15 16:58 | Diagnostic Imaging Report ---
EXAMINATION: Lumbar spine radiographs, 3 views. COMPARISON: None. HISTORY: 52-year-old female, low back pain. FINDINGS: There are advanced facet degenerative changes at L4-L5. There is transitional lumbosacral anatomy. L5 is labeled as partially sacralized. There is grade 1 anterolisthesis of L4 on L5 most likely relating to the facet arthropathy. There is no identified compression deformity or fracture. The lumbar disc heights are fairly well preserved. IMPRESSION: 1. Advanced bilateral facet degenerative changes at L4-L5 with grade 1 anterolisthesis of L4 on L5. 2. Transitional lumbosacral anatomy. L5 is labeled as partially sacralized. 3. No identified compression deformity or fracture. Dictated by: Dictated on workstation # [id number]
== END ==
LOC: RAD 14:37
PROVIDERS: ATTEND Family Medicine
DX: M47.816 Spondylosis without myelopathy or radiculopathy, lumbar region (principal); M43.16 Spondylolisthesis, lumbar region; Z98.890 Other specified postprocedural states
CPT/HCPCS: 72100